=== PATIENT | male | born 1990 | race African-American/Black ===

== ENCOUNTER 2024-04-13 21:05 | Emergency (ER) | payer MEDICAID ==
[~2024-04-13] VITALS: Ht 172.7 cm; Wt 77.1 kg
[2024-04-13 21:17] VITALS: BP_SYST 122; PULSE 69; RESP 20; TEMP 98.1; O2SAT 98
[2024-04-13 21:55] LABS: BASOPHILS # (AUTO) 0.1 K/uL (0.0-0.2); EOSINOPHILS # (AUTO) 0.6 K/uL (0.0-0.4); EOSINOPHILS % (AUTO) 9.1 % (0.0-4.0); HEMATOCRIT 40.2 % (36-54); HEMOGLOBIN 13.4 g/dL (14.0-18.0); LYMPHOCYTES # (AUTO) 1.8 K/uL (1.0-5.5); LYMPHOCYTES % (AUTO) 29.7 % (20.5-51.5); MEAN CORPUSCULAR HEMOGLOBIN 29 pg (27-31); MEAN CORPUSCULAR HGB CONC 33 % (32-36); MEAN CORPUSCULAR VOLUME 86 fL (79.0-98.0); MONOCYTES # (AUTO) 0.6 K/uL (0.0-1.0); NEUTROPHILS % (AUTO) 50.2 % (40.0-70.0); PLATELET COUNT (AUTO) 246 K/uL (130-430); RED BLOOD CELL COUNT(AUTO) 4.66 MIL/uL (4.2-6.2); RED CELL DISTRIBUTION WIDTH 12.3 % (9.0-15.0); WHITE BLOOD COUNT (AUTO) 6.1 K/uL (4.8-10.8)
[2024-04-13] MEDS: NACL 0.9% 1,000 ML IV ONE (22:00)
[2024-04-13] MEDS: FAMOTIDINE PF 20 MG/2 ML VIAL IVP ONE (22:00)
[2024-04-13] MEDS: ONDANSETRON HCL 4 MG/2 ML VIAL IVP ONE (22:00)
[2024-04-13 22:15] LABS: ALBUMIN 3.7 g/dL (3.4-4.8); BILIRUBIN,DIRECT 0.1 mg/dL (0.0-0.3); CALCIUM 8.7 mg/dL (8.4-11.0); CREATININE 1.14 mg/dL (0.55-1.30); TOTAL BILIRUBIN 0.4 mg/dL (0.0-1.0); TOTAL PROTEIN, SERUM 6.8 g/dL (6.4-8.3)
[2024-04-13 23:52] LABS: BARBITURATE, URINE NEGATIVE (NEG <=200); BENZODIAZEPINE, URINE NEGATIVE (NEG <=150); CANNABINOID, URINE NEGATIVE (NEG <=50); COCAINE, URINE NEGATIVE (NEG <=150); METHAMPHETAMINES SCREEN,URINE NEGATIVE (NEG <=500); OPIATE, URINE NEGATIVE (NEG <=100); PHENCYCLIDINE SCREEN,URINE NEGATIVE (NEG <=25); UR TRICYCLIC ANTIDEPRESSANTS NEGATIVE (NEG <=300); URINE AMPHETAMINE NEGATIVE (NEG <=500); URINE METHADONE NEGATIVE (NEG <=200); URINE OXYCODONE SCREEN NEGATIVE (NEG <=100)
[2024-04-14] MEDS ORDERED: SENN-220 PO (00:08)
[2024-04-14 00:21] VITALS: BP_SYST 125; PULSE 71; RESP 20; TEMP 98; O2SAT 99
== END 2024-04-14 00:20 | disposition home or self-care (01) ==
LOC: SED 21:05
DX: K59.00 Constipation, unspecified (principal); R11.2 Nausea with vomiting, unspecified; R19.7 Diarrhea, unspecified
CPT/HCPCS: 99285; 74176; 96374; 96361; 96375; 80307; 80076; 80048; 83690; 85025; 36415; J3490; J2405; J7030